=== PATIENT | female | born 1940 | race Caucasian/White ===

== ENCOUNTER → 2018-01-10 | Outpatient (CLI) | payer MEDICARE | LOC: M.CT 12:00 | DX: N28.1 Cyst of kidney, acquired (principal); E27.8 Other specified disorders of adrenal gland ==

== ENCOUNTER → 2019-02-13 | Outpatient (CLI) | payer MEDICARE | LOC: M.RAD 02-05 16:05 | DX: Z12.31 Encounter for screening mammogram for malignant neoplasm of breast (principal); M85.89 Other specified disorders of bone density and structure, multiple sites; Z78.0 Asymptomatic menopausal state; Z88.8 Allergy status to other drugs, medicaments and biological substances; Z88.0 Allergy status to penicillin ==

== ENCOUNTER → 2019-04-25 | Outpatient (CLI) | payer MEDICARE | LOC: M.RAD 11:14 | DX: M41.84 Other forms of scoliosis, thoracic region (principal) ==